=== PATIENT | female | born 1975 | race Caucasian/White ===

== ENCOUNTER 2017-04-22 22:30 | Emergency (ER) | payer BC ==
[2017-04-22 22:38] VITALS: BP 117/78
[2017-04-22] MEDS ORDERED: Acetaminophen/oxyCODONE 325-5 MG Tab PO ONE (23:00)
--- NOTE | 2017-04-22 23:06 | EDM.PDOC ---
ED HPI GENERAL MEDICAL PROBLEM - General Chief Complaint: ENT Problem Stated Complaint: TOOTHACHE Time Seen by Provider: 04/22/17 23:00 Source of Information: Reports: Patient History Limitations: Reports: No Limitations - History of Present Illness INITIAL COMMENTS - FREE TEXT/NARRATIVE: PT STATES SHE HAD TOOTH EXTRACTION 6 DAYS AGO AND PAIN HAS PERSISTED. CALLED DENTIST ON SUNDAY AND THEY DID NOT GIVE HER PAIN MEDICATION. HAS F/U ON SUNDAY. DENIES FEVER, DIFFICULTY SWALLOWING, SOB, OR TONGUE EDEMA. 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 SPECIALIST: Reports: Acetaminophen, NSAIDS Right Face Pain Score (Numeric/FACES): 8 - Related Data Allergies Allergy/AdvReac Type Severity Reaction Status Date / Time Penicillins Allergy Anaphylactic Verified 04/22/17 22:37 Shock Home Meds: Home Meds Ascorbic Acid [Vitamin C] 1,000 mg PO DAILY 07/26/16 [History] Ergocalciferol (Vitamin D2) [Vitamin D] 800 unit PO DAILY 07/26/16 [History] Pantoprazole Sodium [Protonix] 40 mg PO DAILY 07/26/16 [History] Venlafaxine HCl [Venlafaxine ER] 150 mg PO DAILY 04/22/17 [History] Warfarin Sodium [Jantoven] 25 mg PO DAILY 04/22/17 [History] Past Medical History HEENT History: Reports: None Cardiovascular History: Reports: High Cholesterol Respiratory History: Reports: Bronchitis, Recurrent Gastrointestinal History: Reports: GERD, Hiatal Hernia Genitourinary History: Reports: None N[employer] P[employer] 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: Musculoskeletal History: Reports: Fracture Neurological History: Reports: Concussion, Headaches, Chronic, Migraines, Other (See Below) Other Neuro History: Peniel gland cyst Psychiatric History: Reports: ADD, Anxiety, Depression, Mood Swings Endocrine/Metabolic History: Reports: None Hematologic History: Reports: Anemia, Other (See Below) Other Hematologic History: factor 5 Dermatologic History: Reports: None - Infectious Disease History Infectious Disease History: Reports: Influenza, Mononucleosis, Shingles - Past Surgical History HEENT Surgical History: Reports: Oral Surgery Female Surgical History: Reports: Hysterectomy, Salpingo-Oophorectomy Musculoskeletal Surgical History: Reports: Other (See Below) Social & Family History - Tobacco Use Smoking Status *Q: Current Some Day Smoker Years of Tobacco use: 20 Packs/Tins Daily: 1 Used Tobacco, but Quit: No Second Hand Smoke Exposure: No - Caffeine Use Caffeine Use: Reports: Coffee - Recreational Drug Use Recreational Drug Use: Yes Drug Use in Last 12 Months: No Recreational Drug Type: Reports: Marijuana/Hashish Recreational Drug Last Use: 08/05/2013 ED ROS ENT - Review of Systems Review Of Systems: ROS reveals no pertinent complaints other than HPI. Constitutional: Reports: No Symptoms HEENT: Reports: Other (RIGHT UPPER DENTAL PAIN) Respiratory: Reports: No Symptoms Cardiovascular: Reports: No Symptoms Endocrine: Reports: No Symptoms GI/Abdominal: Reports: No Symptoms : Reports: No Symptoms Musculoskeletal: Reports: No Symptoms Skin: Reports: No Symptoms Neurological: Reports: No Symptoms Psychiatric: Reports: No Symptoms Hematologic/Lymphatic: Reports: No Symptoms Immunologic: Reports: No Symptoms ED EXAM, ENT - Physical Exam Exam: See Below Exam Limited By: No Limitations General Appearance: Alert, WD/WN, No Apparent Distress Nose: Normal Inspection Mouth/Throat: Dental Pain, Dental Tenderness, Other (RIGHT MOLAR TOOTH EXTRACTION WITHOUT ERYTHEMA, EDEMA, OR DRY SOCKET. NO ABSCESS NOTED). No: Bleeding, Dental Abcess, Gum Swelling, Lip Swelling, Oral Ulcers, Peritonsillar Mass, Pharyngeal Erythema, Tongue Swelling, Tonsillar Erythema, Tonsillar Exudates, Tonsillar Swelling, Trismus, Uvular Deviation, Uvular Edema Head: Atraumatic, Normocephalic Neck: Normal Inspection. No: Lymphadenopathy (L), Lymphadenopathy (R) Respiratory/Chest: No Respiratory Distress, Lungs Clear Cardiovascular: Regular Rate, Rhythm Neurological: Alert, Oriented, Normal Cognition Psychiatric: Normal Affect, Normal Mood Skin: Warm, Dry, Intact, Normal Color, No Rash Lymphatic: No Adenopathy Course - Vital Signs Last Recorded V/S: Last Vital Signs Temp 97.9 F 04/22/17 22:33 Pulse 91 04/22/17 22:33 Resp 16 04/22/17 22:33 BP 117/78 04/22/17 22:33 Pulse Ox 97 04/22/17 22:33 - Orders/Labs/Meds Meds: Medications Discontinued Medications Generic Name Dose Route Start Last Admin Trade Name Freq PRN Reason Stop Dose Admin Oxycodone/Acetaminophen 2 tab 04/22/17 23:00 Percocet 325-5 Mg PO 04/22/17 23:01 ONETIME ONE - Re-Assessments/Exams Free Text/Narrative Re-Assessment/Exam: 04/22/17 23:06 PT AFEBRILE, NONTOXIC APPEARING, VSS, REQUESTING PAIN MEDICATION. WILL GIVE MEDS FOR TONIGHT AND HAVE HER F/U WITH DENTIST TOMORROW Departure - Departure Time of Disposition: 23:08 Disposition: Home, Self-Care 01 Condition: Good Clinical Impression: Pain, dental, History of recent dental procedure - Discharge Information Instructions: Dental Extraction, Care After, [id number] Additional Instructions: FOLLOW UP WITH YOUR DENTIST SCHEDULED - Assessment/Plan Assessment:: DENTAL PAIN POST PROCEDURE Plan: F/U WITH DENTIST
== END 2017-04-22 23:25 | disposition home or self-care (01) ==
LOC: KA.ED 22:30
DX: G89.18 Other acute postprocedural pain (principal); K08.89 Other specified disorders of teeth and supporting structures; E78.00 Pure hypercholesterolemia, unspecified; F17.210 Nicotine dependence, cigarettes, uncomplicated; K21.9 Gastro-esophageal reflux disease without esophagitis; F41.9 Anxiety disorder, unspecified; F32.9 Major depressive disorder, single episode, unspecified; Z86.79 Personal history of other diseases of the circulatory system; Z79.01 Long term (current) use of anticoagulants; Z88.0 Allergy status to penicillin; Z98.890 Other specified postprocedural states
CPT/HCPCS: 99282; A9270

== ENCOUNTER 2017-05-22 18:14 | Emergency (ER) | payer BC ==
[2017-05-22 18:52] VITALS: BP 126/57
--- NOTE | 2017-05-22 19:13 | EDM.PDOC ---
ED HPI GENERAL MEDICAL PROBLEM - General Chief Complaint: General Stated Complaint: S/P FALL, LEFT LEG INJURY Time Seen by Provider: 05/22/17 19:08 Source of Information: Reports: Patient History Limitations: Reports: No Limitations - History of Present Illness INITIAL COMMENTS - FREE TEXT/NARRATIVE: Patient is a 41-year-old female who presents to the ER today with a complaint of left hip pain. Initial incident was on May 08, where she states that she accidentally hit left hip on trailer hitch. She developed ecchymosis but the pain seemed to subside. Pain has been intermittent but now becoming worse with radiation extending down her thigh. She is currently on Coumadin for blood disorder, but has no history of DVT. She denies any other injury, pain, fever, blood in urine, blood in stool, or bleeding from teeth. Onset: Gradual Onset Date: 05/08/17 Duration: Week(s): Location: Reports: Lower Extremity, Left Quality: Reports: Ache Severity: Mild Improves with: Reports: Immobilization Worsens with: Reports: Movement Context: Reports: Trauma Associated Symptoms: Reports: No Other Symptoms Treatments COIL BINDER: Reports: NSAIDS Left Anterior Hip Pain Score (Numeric/FACES): 7 - Related Data Allergies Allergy/AdvReac Type Severity Reaction Status Date / Time Penicillins Allergy Anaphylactic Verified 05/22/17 18:39 Shock Home Meds: Home Meds Ascorbic Acid [Vitamin C] 1,000 mg PO DAILY 07/26/16 [History] Ergocalciferol (Vitamin D2) [Vitamin D] 800 unit PO DAILY 07/26/16 [History] Pantoprazole Sodium [Protonix] 40 mg PO DAILY 07/26/16 [History] Warfarin Sodium [Jantoven] 5 mg PO DAILY 04/22/17 [History] Desvenlafaxine Succinate [Desvenlafaxine Succinate ER] 100 mg PO DAILY 05/22/17 [History] Dextroamphetamine/Amphetamine [Adderall 20 mg Tablet] 20 mg PO DAILY 05/22/17 [ History] Meclizine HCl [Meclizine HCl] 25 mg PO DAILY 05/22/17 [History] Topiramate [Topiramate] 50 mg PO BID 05/22/17 [History] Past Medical History HEENT History: Reports: None Cardiovascular History: Reports: High Cholesterol Respiratory History: Reports: Bronchitis, Recurrent Gastrointestinal History: Reports: GERD, Hiatal Hernia Genitourinary History: Reports: None 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: Musculoskeletal History: Reports: Fracture Neurological History: Reports: Concussion, Headaches, Chronic, Migraines, Other (See Below) Other Neuro History: Peniel gland cyst Psychiatric History: Reports: ADD, Anxiety, Depression, Mood Swings Endocrine/Metabolic History: Reports: None Hematologic History: Reports: Anemia, Other (See Below) Other Hematologic History: factor 5 Dermatologic History: Reports: None - Infectious Disease History Infectious Disease History: Reports: Influenza, Mononucleosis, Shingles - Past Surgical History HEENT Surgical History: Reports: Oral Surgery GI Surgical History: Reports: Monserrat Fundoplication Female Surgical History: Reports: Hysterectomy, Salpingo-Oophorectomy Musculoskeletal Surgical History: Reports: Other (See Below) Social & Family History - Tobacco Use Smoking Status *Q: Current Some Day Smoker Years of Tobacco use: 20 Packs/Tins Daily: 1 Used Tobacco, but Quit: No Second Hand Smoke Exposure: No - Caffeine Use Caffeine Use: Reports: Coffee - Recreational Drug Use Recreational Drug Use: Yes Drug Use in Last 12 Months: No Recreational Drug Type: Reports: Marijuana/Hashish Recreational Drug Last Use: 08/05/2013 ED ROS GENERAL - Review of Systems Review Of Systems: ROS reveals no pertinent complaints other than HPI. Constitutional: Reports: No Symptoms HEENT: Reports: No Symptoms Respiratory: Reports: No Symptoms Cardiovascular: Reports: No Symptoms Endocrine: Reports: No Symptoms GI/Abdominal: Reports: No Symptoms : Reports: No Symptoms Musculoskeletal: Reports: Leg Pain (left thigh and hip) Skin: Reports: Bruising Neurological: Reports: No Symptoms Psychiatric: Reports: No Symptoms Hematologic/Lymphatic: Reports: No Symptoms Immunologic: Reports: No Symptoms ED EXAM, GENERAL - Physical Exam Exam: See Below Exam Limited By: No Limitations General Appearance: Alert, WD/WN, No Apparent Distress Nose: Normal Inspection, No Blood Throat/Mouth: Normal Inspection, Normal Oropharynx, No Airway Compromise Head: Atraumatic, Normocephalic Neck: Normal Inspection Respiratory/Chest: No Respiratory Distress, Lungs Clear Cardiovascular: Regular Rate, Rhythm, No Murmur GI/Abdominal: Normal Bowel Sounds, Soft, Non-Tender Back Exam: Normal Inspection, Full Range of Motion. No: CVA Tenderness (L), CVA Tenderness (R) Extremities: No Pedal Edema, Leg Pain (LEFT LATERAL THIGH AND HIP), Other (LEFT LATERAL THIGH WITH RESOLVING 5 CM ROUND ECCHYMOTIC REGION. NO HEMATOMA NOTED). No: Normal Inspection Neurological: Alert, Oriented, Normal Cognition Psychiatric: Normal Affect, Normal Mood Skin Exam: Warm, Dry, Intact, Normal Color, No Rash Lymphatic: No Adenopathy Course - Vital Signs Last Recorded V/S: Last Vital Signs Temp 99.1 F 05/22/17 18:51 Pulse 84 05/22/17 18:51 Resp 18 05/22/17 18:51 BP 126/57 L 05/22/17 18:51 Pulse Ox 95 05/22/17 18:51 - Orders/Labs/Meds Orders: Active Orders 24 hr Category Date Time Status Hip Min 2V or 3V Lt [CR] Stat Exams 05/22/17 18:37 Ordered Pelvis 1V or 2V [CR] Stat Exams 05/22/17 18:37 Ordered Labs: Laboratory Tests 05/22/17 Range/Units 18:43 INR 1.3 H (0.9-1.1) - Radiology Interpretation Free Text/Narrative:: X-RAY OF HIP AND PELVIS SHOWS NO ACUTE PROCESS. - Re-Assessments/Exams Free Text/Narrative Re-Assessment/Exam: 05/22/17 19:25 PATIENT AFEBRILE, NONTOXIC APPEARING, VITAL SIGNS STABLE. PATIENT HAS BEEN TAKING INTERMITTENT NSAIDS AND WILL ADVISE TO DISCONTINUE BEING THAT SHE IS ON COUMADIN. COUMADIN LEVEL TODAY IS 1.2. THERAPEUTIC IS SAID TO BE 1.5-2.0. WILL SEND PATIENT HOME WITH 5/325 HYDROCODONE AND HAVE HER FOLLOW-UP AT THE CLINIC IN 2 DAYS. Departure - Departure Time of Disposition: 19:21 Disposition: Home, Self-Care 01 Condition: Good Clinical Impression: Contusion of hip and thigh Qualifiers: Encounter type: initial encounter Laterality: left Qualified Code(s): S70.02XA - Contusion of left hip, initial encounter; S70.12XA - Contusion of left thigh, initial encounter; S70.12XA - Contusion of left thigh, initial encounter - Discharge Information Instructions: Contusion, [id number], Hip Pain Referrals: Sho Patricio PA-C [Primary Care Provider] - Additional Instructions: FOLLOW UP AT CLINIC IN NEXT 2-3 DAYS. RETURN TO ER SOONER IF SYMPTOMS CONTINUE - My Orders Last 24 Hours: My Active Orders 05/22/17 18:37 Hip Min 2V or 3V Lt [CR] Stat Pelvis 1V or 2V [CR] Stat - Assessment/Plan Last 24 Hours: My Active Orders 05/22/17 18:37 Hip Min 2V or 3V Lt [CR] Stat Pelvis 1V or 2V [CR] Stat Assessment:: LEG CONTUSION Plan: F/U WITH PCP
[2017-05-22] MEDS ORDERED: Acetaminophen/HYDROcodone 325-10 MG Tab PO ONE (19:22)
== END 2017-05-22 19:40 | disposition home or self-care (01) ==
LOC: KA.ED 18:14
DX: S70.02XA Contusion of left hip, initial encounter (principal); S70.12XA Contusion of left thigh, initial encounter; K21.9 Gastro-esophageal reflux disease without esophagitis; E78.00 Pure hypercholesterolemia, unspecified; F32.9 Major depressive disorder, single episode, unspecified; F17.210 Nicotine dependence, cigarettes, uncomplicated; Z79.01 Long term (current) use of anticoagulants; Z79.899 Other long term (current) drug therapy; Z88.0 Allergy status to penicillin; W01.198A Fall on same level from slipping, tripping and stumbling with subsequent striking against other object, initial encounter
CPT/HCPCS: 36416; 72170; 73502; 85610; 99283; A9270

== ENCOUNTER 2017-05-27 18:20 | Emergency (ER) | payer BC ==
[2017-05-27 18:45] VITALS: BP 148/77
[2017-05-27] MEDS ORDERED: Ketorolac 60 MG/2 ML SDV IM ONE (19:58)
[2017-05-27] MEDS ORDERED: Ketorolac 60 MG/2 ML SDV ONE (19:59)
--- NOTE | 2017-05-27 20:04 | EDM.PDOC ---
ED HPI GENERAL MEDICAL PROBLEM - General Chief Complaint: General Stated Complaint: Left Hip Pain Time Seen by Provider: 05/27/17 19:27 Source of Information: Reports: Patient History Limitations: Reports: No Limitations - History of Present Illness INITIAL COMMENTS - FREE TEXT/NARRATIVE: Patient presents with pain at left ASIC that started 4 days ago. She had bumped her left posterior thigh quite forcefully a couple days earlier but that hasn't bothered very much. Four days ago when this current pain started she came to ER and had xrays which were negative and was given #4 Lortab which she has used one daily through today. 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 She denies abdominal pain or constipation. No fever or dysuria. Left hip Pain Score (Numeric/FACES): 9 - Related Data Allergies Allergy/AdvReac Type Severity Reaction Status Date / Time Penicillins Allergy Anaphylactic Verified 05/27/17 18:26 Shock Home Meds: Home Meds Ascorbic Acid [Vitamin C] 1,000 mg PO DAILY 07/26/16 [History] Ergocalciferol (Vitamin D2) [Vitamin D] 800 unit PO DAILY 07/26/16 [History] Pantoprazole Sodium [Protonix] 40 mg PO DAILY 07/26/16 [History] Warfarin Sodium [Jantoven] 5 mg PO DAILY 04/22/17 [History] Desvenlafaxine Succinate [Desvenlafaxine Succinate ER] 100 mg PO DAILY 05/22/17 [History] Dextroamphetamine/Amphetamine [Adderall 20 mg Tablet] 20 mg PO DAILY 05/22/17 [ History] Meclizine HCl [Meclizine HCl] 25 mg PO DAILY 05/22/17 [History] Topiramate [Topiramate] 50 mg PO BID 05/22/17 [History] Past Medical History HEENT History: Reports: None Cardiovascular History: Reports: High Cholesterol Respiratory History: Reports: Bronchitis, Recurrent Gastrointestinal History: Reports: GERD, Hiatal Hernia Genitourinary History: Reports: None 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: Musculoskeletal History: Reports: Fracture Neurological History: Reports: Concussion, Headaches, Chronic, Migraines, Other (See Below) Other Neuro History: Peniel gland cyst Psychiatric History: Reports: ADD, Anxiety, Depression, Mood Swings Endocrine/Metabolic History: Reports: None Hematologic History: Reports: Anemia, Other (See Below) Other Hematologic History: factor 5 Dermatologic History: Reports: None - Infectious Disease History Infectious Disease History: Reports: Influenza, Mononucleosis, Shingles - Past Surgical History HEENT Surgical History: Reports: Oral Surgery GI Surgical History: Reports: Monserrat Fundoplication Female Surgical History: Reports: Hysterectomy, Salpingo-Oophorectomy Musculoskeletal Surgical History: Reports: Other (See Below) Social & Family History - Tobacco Use Smoking Status *Q: Current Every Day Smoker Years of Tobacco use: 20 Packs/Tins Daily: 0.5 Used Tobacco, but Quit: No Second Hand Smoke Exposure: Yes - Caffeine Use Caffeine Use: Reports: Coffee, Tea - Recreational Drug Use Recreational Drug Use: No Drug Use in Last 12 Months: No Recreational Drug Type: Reports: Marijuana/Hashish Recreational Drug Last Use: 08/05/2013 ED ROS GENERAL - Review of Systems Review Of Systems: ROS reveals no pertinent complaints other than HPI. ED EXAM, GENERAL - Physical Exam Exam: See Below Exam Limited By: No Limitations General Appearance: Alert, WD/WN, No Apparent Distress Eye Exam: Bilateral Eye: EOMI, Normal Inspection, PERRL Ears: Normal External Exam, Hearing Grossly Normal Nose: Normal Inspection, No Blood Throat/Mouth: Normal Inspection, Normal Lips, Normal Voice, No Airway Compromise Head: Atraumatic, Normocephalic Neck: Full Range of Motion Respiratory/Chest: No Respiratory Distress, Rhonchi (mostly cleared with coughing: left lung base) Cardiovascular: Regular Rate, Rhythm, No Murmur GI/Abdominal: Normal Bowel Sounds, Soft, Non-Tender, No Organomegaly, No Distention, Other (The apex of left ASIC is very tender to palpation but very localized to that spot. No swelling or ecchymosis.) Extremities: Normal Inspection, Normal Range of Motion Neurological: Alert, Oriented, Normal Cognition, No Motor/Sensory Deficits Psychiatric: Normal Affect, Normal Mood Skin Exam: Warm, Dry, Intact, Normal Color, No Rash Course - Vital Signs Last Recorded V/S: Last Vital Signs Temp 96.5 F 05/27/17 18:44 Pulse 81 05/27/17 18:44 Resp 14 05/27/17 18:44 BP 148/77 H 05/27/17 18:44 Pulse Ox 92 L 05/27/17 18:44 - Orders/Labs/Meds Orders: Active Orders 24 hr Category Date Time Status Ketorolac [Toradol] Med 05/27/17 19:58 Once 60 mg IM ONETIME ONE - Re-Assessments/Exams Free Text/Narrative Re-Assessment/Exam: 05/27/17 20:14 Discussed findings and treatment plan with patient. She tells me she would like Toradol and can use NSAIDS for short-term but not long-term since she is on warfarin for Leiden Factor V. I advised using a cane if ambulation is painful and to try to not aggravate this to let it settle down. I explained that I think this is a muscle strain or tear where it attaches to the iliac crest. Advised to follow up with PCP if not improving in a week. Pt discharged in stable condition. Departure - Departure Time of Disposition: 19:59 Disposition: Home, Self-Care 01 Condition: Good Clinical Impression: Iliac crest bone pain - Discharge Information Additional Instructions: 1. After 12 hours start Ibuprofen 600 mg and take every 8 hours for 3-4 days. 2. Take the Lortab as directed for pain not controlled by Ibuprofen. 3. Try to avoid activities that aggravate the pain and use a cane if needed for ambulation. 4. Follow up with PCP in a week if not improving or sooner if worsening. - My Orders Last 24 Hours: My Active Orders 05/27/17 19:58 Ketorolac [Toradol] 60 mg IM ONETIME ONE - Assessment/Plan Last 24 Hours: My Active Orders 05/27/17 19:58 Ketorolac [Toradol] 60 mg IM ONETIME ONE
[2017-05-27] MEDS ORDERED: Acetaminophen/HYDROcodone 325-5 MG Tab PO ONE (20:20)
[2017-05-27] MEDS ORDERED: Acetaminophen/HYDROcodone 325-5 MG Tab ONE (20:26)
== END 2017-05-27 20:25 | disposition home or self-care (01) ==
LOC: KA.ED 18:20
DX: M25.552 Pain in left hip (principal); E78.00 Pure hypercholesterolemia, unspecified; K21.9 Gastro-esophageal reflux disease without esophagitis; F32.9 Major depressive disorder, single episode, unspecified; F17.210 Nicotine dependence, cigarettes, uncomplicated; Z86.2 Personal history of diseases of the blood and blood-forming organs and certain disorders involving the immune mechanism; Z79.01 Long term (current) use of anticoagulants; Z79.899 Other long term (current) drug therapy; Z88.0 Allergy status to penicillin
CPT/HCPCS: 96372; 99283; A9270; J1885